=== PATIENT | female | born 1975 | race African-American/Black ===

== ENCOUNTER 2021-06-24 13:58 | Emergency (ER) | payer SELFPAY ==
--- OUTSIDE RECORDS SUMMARY | 2021-06-24 14:02 | XMS REPORT | Continuity of Care Document ---
:1975 Author Organization [facility] t Address [address] [place] [address] Care Team Providers Name Role Phone Abhay Attending Clinician Unavailable Physician, Primary or Family Admitting Clinician Unavailabl e Payers Payer Name Policy Type Policy Number Effective Date Expiration Date S ource Problems This patient has no known problems. Allergies, Adverse Reactions, Alerts Allergy Allergy Status Severity Reaction(s) Onset Inactive Treating Comm ents Source Name Type Date Date Clinician No Known DA Active U 2016-07 [facility]- Clear s 00:00: [place] [facility] No Known DA Active U 2016-07 [facility] All[facility]ie 2-22 Clear s 00:00: [address] Medications This patient has no known medications. Procedures This patient has no known procedures. Encounters Start End Encounter Admission Attending Care Care Encounter Source Date/Time Date/Time Type Type Clinicians Facility Department ID 2019-10-09 Inpatient JOMAR SADLER [id number] [facility] 08:25:00 [facility] 2019-10-09 2019-10-09 Outpatient ALYX Blank LA2 [id number] [facility] 23:59:00 23:59:00 Hector [facility] Results Test Description Test Time Test Comments Results Result Comments Source DNA PROBE CHLAMYDIA GC 2019-10-11 08:49:00 Test Item Value Reference Range Interpretation Comme nts DNA PROBE CHLAMYDIA (test code = Negative Negative DNACH) DNA PROBE N.GONORRHEA (GC) (test Negative Negative Performed At: [facility] [place] code = DNAGC) [id number] [place], [place] [id number] jesse Canseco Ph:[phone] DNA PROBE CHLAMYDIA [id number] 22:07:00 Test Item Value Reference Range Interpretation Comments DNA PROBE CHLAMYDIA Negative Negative (test code = DNACH) DNA PROBE N.GONORRHEA Negative Negative Perfor med At: (GC) (test code = [facility] Sa n DNAGC) [id number] [place], [place] [id number] jesse Canseco Ph:[phone] DNA NUCLEIC ACID (test code = DNANUC) - US PELVIC [id number] 09:46:00 Name: ADEN KILLIAN [facility] : 1975 Age/S: 44 / F [address] [place] Unit #: [id number] Loc: [place] [address] Phys: Hector Blank MD Acct: [id number] Dis Date: Status: REG ER PHONE #: [phone] Exam Date: 10/09/2019929 FAX #: Reason: pelvic pain EXAMS: CPT: [id number] US PELVIC COMPLETE [id number] LOCATION: T18 EXAM: - US PELVIC COMPLETE INDICATION: pelvic pain COMPARISON: None. TECHNIQUE: Real-time grayscale sonographic images of the complete pelvis are submitted for interpretation. FINDINGS: Uterus measures 16.4 x 6.1 x 9.3 cm. Endometrium is not clearly seen due to multiple intramural fibroids which are partially calcified and shadowing. 3 large fibroids present measuring 4.7 x 4.5 x 4 cm, 3.7 x 4.1 x 3.8 cm, and 3.3 x 2.8 x 2.7 cm. Right ovary is not seen. Left ovary measures 2.7 x 1.5 x 3 cm. Normal venous and arterial waveforms of the left ovary. No adnexal mass or free fluid. IMPRESSION: Enlarged fibroid uterus with fibroids measuring up to 4.7 cm. at 0946 Reported and signed by: Abrahan Hannah M.D. CC: Hector Blank MD Technologist: Radha Perez Trnscb Date/Time: 10/09/2019 (945) [id number] PAGE 1 Signed Report Name: ADEN KILLIAN : 1975 Age/S: 44 / F [address] Unit #: [id number] Loc: [place] [address] Phys: Hector Blank MD Acct: [id number] Dis Date: Status: REG ER PHONE #: [phone] Exam Date: 10/09/2019929 FAX #: Reason: pelvic pain EXAMS: CPT: [id number] PELVIC COMPLETE [address]3233 <Continued> Orig Print D/T: S: 10/09/2019 (0949) Probe: PAGE 2 Signed ReportUA RFLX MICR CULT IF [id number] 09:23:00 Test Item Value Reference Range Interpretation Comments UA COLOR (test code = YELLOW discript YEL/STRAW COLU) UA APPEARANCE (test code HAZY discript CLEAR A = APPU) UA GLUCOSE DIPSTICK (test NEGATIVE mg/dL NEG code = DGLUU) UA BILIRUBIN DIPSTICK NEGATIVE mg/dL NEG (test code = BILU) UA KETONE DIPSTICK (test NEGATIVE mg/dL NEG code = KETU) UA SPECIFIC GRAVITY (test 1.025 SG 1.005-1.030 code = SGU) UA BLOOD DIPSTICK (test 1+ mg/DL NEG A code = MODE) UA PH DIPSTICK (test code 5.5 pH UNITS 5.0-7.0 = ISATU) UA PROTEIN DIPSTICK (test NEGATIVE mg/dL NEG code = PROU) UA UROBILINIOGEN DIPSTICK 0.2 mg/dL <2.0 (test code = URO) UA NITRITE DIPSTICK (test NEGATIVE SCREEN NEG code = ALYSIA) UA LEUKOCYTE ESTERASE 2+ Leuk/mcL NEGATIVE A DIPSTICK (test code = LEUU) UA WBC (test code = WBCU) >50 #WBC/HPF 0-3 A UA RBC (test code = RBCU) 1-3 #RBC/HPF 0-3 UA BACTERIA (test code = 1+ /HPF NONE-TRACE A BACU) UA SQUAMOUS CELLS (test 1+ /HPF NONE A code = SQU) UA CULTURE NEEDED? (test YES,WBC>10 & EPI<25 Culture CHK code = UACULT) Criteria SOURCE OF URINE: CLEAN CATCHIndication for culture: Dysuria/FrequencyBASIC METABOLIC [id number] 09:18:00 Test Item Value Reference Range Interpretation Comments SODIUM (test code = NA) 137 mmol/L 134-147 N POTASSIUM (test code = 3.7 mmol/L 3.4-5.0 N K) CHLORIDE (test code = 104 mmol/L 100-108 N CL) CARBON DIOXIDE (test 29 mmol/L 21-32 N code = CO2) ANION GAP (test code = 4.0 GAP calc 4.0-15.0 N GAP) GLUCOSE (test code = 92 MG/DL 70-110 N GLU) BLOOD UREA NITROGEN 10 MG/DL 7-18 N (test code = BUN) GLOMERULAR FILTRATION >=60 max estimate >60 RATE (test code = GFR) estGFR CREATININE (test code = 1.0 MG/DL 0.6-1.0 N CREAT) CALCIUM (test code = CA) 8.6 MG/DL 8.5-10.1 N HCG [id number] 09:18:00 Test Item Value Reference Range Interpretation Comments HCG SERUM (test < 1 mi-IU/ML 0-6 N 0 - 6 NOT code = HCG) > 6 SUGGESTIVE OF EARLY RISES TWO FOLD EVERY 2 DAYS; SUGGES T RECONFIRMING AF TER 2 DAYS. 150,000-200,[address] TR[address] 10,00 0 - 50,000 2ND & 3RD TRIMESTER UA RFLX MICR CULT IF [id number] 09:07:00 Test Item Value Reference Range Interpretation Comments UA COLOR (test code = COLU) YELLOW discript YEL/STRAW UA APPEARANCE (test code = HAZY discript CLEAR A APPU) UA GLUCOSE DIPSTICK (test NEGATIVE mg/dL NEG code = DGLUU) UA BILIRUBIN DIPSTICK (test NEGATIVE mg/dL NEG code = BILU) UA KETONE DIPSTICK (test code NEGATIVE mg/dL NEG = KETU) UA SPECIFIC GRAVITY (test 1.025 SG 1.005-1.030 code = SGU) UA BLOOD DIPSTICK (test code 1+ mg/DL NEG A = MODE) UA PH DIPSTICK (test code = 5.5 pH UNITS 5.0-7.0 ISATU) UA PROTEIN DIPSTICK (test NEGATIVE mg/dL NEG code = PROU) UA UROBILINIOGEN DIPSTICK 0.2 mg/dL <2.0 (test code = URO) UA NITRITE DIPSTICK (test NEGATIVE SCREEN NEG code = ALYSIA) UA LEUKOCYTE ESTERASE 2+ Leuk/mcL NEGATIVE A DIPSTICK (test code = LEUU) UA CULTURE NEEDED? (test code Criteria Culture CHK = UACULT) SOURCE OF URINE: CLEAN CATCHIndication for culture: Dysuria/FrequencyCBC W/AUTO [id number] 09:01:00 Test Item Value Reference Range Interpretation Comments WHITE BLOOD CELL (test code = 13.0 K/mm3 3.5-11.0 H WBC) RED BLOOD CELL (test code = RBC) 4.66 M/mm3 4.70-6.10 L HEMOGLOBIN (test code = HGB) 11.0 G/DL 10.4-14.9 N HEMATOCRIT (test code = HCT) 34.7 % 31.5-44.1 N MEAN CELL VOLUME (test code = 74.5 Fl 84.5-98.6 L MCV) MEAN CELL HGB (test code = MCH) 23.6 pg 27.0-34.2 L MEAN CELL HGB CONCETRATION (test 31.7 G/DL 31.5-34.0 N code = MCHC) RED CELL DISTRIBUTION WIDTH (test 17.8 SD 11.5-14.5 H code = RDW) PLATELET COUNT (test code = PLT) 344.0 K/mm3 150-450 N MEAN PLATELET VOLUME (test code = 9.60 fL 7.0-10.5 N MPV) NEUTROPHIL % (test code = NT%) 72.9 % 40-76 N LYMPHOCYTE % (test code = LY%) 16.5 % 20.5-51.1 L MONOCYTE % (test code = MO%) 8.5 % 1.7-9.3 N EOSINOPHIL % (test code = EO%) 1.9 % 0.0-6.0 N BASOPHIL % (test code = BA%) 0.2 % 0.0-2.0 N NEUTROPHIL # (test code = NT#) 9.47 K/mm3 1.8-7.6 H LYMPHOCYTE # (test code = LY#) 2.1 K/mm3 0.6-3.2 N MONOCYTE # (test code = MO#) 1.1 K/mm3 0.3-1.1 N EOSINOPHIL # (test code = EO#) 0.3 K/mm3 0.0-0.4 N BASOPHIL # (test code = BA#) 0.0 K/mm3 0.0-0.1 N MANUAL DIFF REQUIRED (test code = NO DIFF/SCN CRITERIA MDIFF)
--- NOTE | 2021-06-24 17:19 | ER ---
Nurse's Notes [facility] Name: Aleksandra Lai Age: 45 yrs Sex: Female : 1975 Arrival Date: 06/24/2021 Time: 13:59 Bed Waiting Private MD: Diagnosis: Presentation: 06/24 14:25 Chief complaint: Patient states: lower abd and back pain starting yesterday. pt has hx [facility] [place] but states no burning with urination nor frequency. Coronavirus screen: Vaccine status: Patient reports being unvaccinated. Ebola Screen: No symptoms or risks identified at this time. Initial Sepsis Screen: Does the patient meet any 2 criteria? No. Patient's initial sepsis screen is negative. Does the patient have a suspected source of infection? No. Patient's initial sepsis screen is negative. Risk Assessment: Do you want to hurt yourself or someone else? Patient reports no desire to harm self or others. Onset of symptoms was June 23, 2021. 14:25 Method Of Arrival: Ambulatory [facility] 14:25 Acuity: MAGO 3 [facility] Triage Assessment: 14:28 General: Appears in no apparent distress. Behavior is calm, cooperative. Pain: [facility] Complains of pain in suprapubic area and left lower quadrant Pain currently is 7 out of 10 on a pain scale. Quality of pain is described as crampy, sharp, Pain began 1 day ago. Is continuous. Historical: - Allergies: 14:28 No Known Allergies; [facility] - Home Meds: 14:28 Tylenol #3 Oral [Active]; [facility] - Immunization history:: Adult Immunizations up to date. - Social history:: Smoking status: Patient denies any tobacco usage or history of. Assessment: 16:52 Reassessment: Called from from ER lobby. No answer. 17:17 Reassessment: called to exam room. No answer. Vital Signs: 14:25 BP 113 / 83; Pulse 96; Resp 17; Temp 97.6(O); Pulse Ox 100% ; Weight 83.91 kg; Height 4 [facility] ft. 9 in. (144.78 cm); Pain 8/10; 14:25 Body Mass Index 40.03 (83.91 kg, 144.78 cm) [facility] ED Course: 13:59 Patient arrived in ED. am2 14:27 Triage completed. 6 14:29 Arm band placed on right wrist. 6 16:41 Rosa Arteaga, RN is Primary Nurse. eo2 Administered Medications: No medications were administered Outcome: 17:18 Patient left the ED. Signatures: Mackenzie Walter RN RN Jennifer Christy am2 Erlinda Cook RN RN [facility] Rosa Arteaga, LISY RN eo2
[2021-06-24 17:48] VITALS: BP 113/83; TEMP 97.6; O2SAT 100
== END 2021-06-24 17:18 | disposition left against medical advice (07) ==
LOC: ER 13:58
DX: Z53.21 Procedure and treatment not carried out due to patient leaving prior to being seen by health care provider (principal)
CPT/HCPCS: 99281

== ENCOUNTER 2021-08-26 13:30 | Emergency (ER) | payer SELFPAY ==
--- OUTSIDE RECORDS SUMMARY | 2021-08-26 13:35 | XMS REPORT | Continuity of Care Document ---
:[address] [facility] t Address [address] [place] [address] Care Team Providers Name Role Phone Nancito Attending Clinician Unavailable Physician, Primary or Family Admitting Clinician Unavailabl e Payers Payer Name Policy Type Policy Number Effective Date Expiration Date S ource Problems This patient has no known problems. Allergies, Adverse Reactions, Alerts Allergy Allergy Status Severity Reaction(s) Onset Inactive Treating Comm ents Source Name Type Date Date Clinician No Known DA Active U 2016-07 [facility] All[facility]ie 2-22 Clear s 00:00: [place] 00 [facility] No Known DA Active U 2016-07 [facility] Allergie 2-22 Clear s 00:00: [address] Medications This patient has no known medications. Procedures This patient has no known procedures. Encounters Start End Encounter Admission Attending Care Care Encounter Source Date/Time Date/Time Type Type Clinicians Facility Department ID 2019-10-09 Inpatient JOMAR SADLER [id number] [facility] 08:25:00 [facility] [place] 2019-10-09 2019-10-09 Outpatient ALYX Blank LA2 [id number] [facility] 23:59:00 23:59:00 Hector [facility] Results Test Description Test Time Test Comments Results Result Comments Source DNA PROBE CHLAMYDIA GC 2019-10-11 08:49:00 Test Item Value Reference Range Interpretation Comme nts DNA PROBE CHLAMYDIA (test code = Negative Negative DNACH) DNA PROBE N.GONORRHEA (GC) (test Negative Negative Performed At: [facility] code = DNAGC) [id number] [place], [place] [id number] jesse Canseco Ph:[phone] DNA PROBE CHLAMYDIA [id number] 22:07:00 Test Item Value Reference Range Interpretation Comments DNA PROBE CHLAMYDIA Negative Negative (test code = DNACH) DNA PROBE N.GONORRHEA Negative Negative Perfor med At: (GC) (test code = [facility] Sa n DNAGC) [id number] [place], [place] [id number] jesse Canseco Ph:[phone] DNA NUCLEIC ACID (test code = DNANUC) - US PELVIC [id number] 09:46:00 Name: ADEN KILLIAN [facility] : 1975 Age/S: 44 / F [address] [place] Unit #: [id number] Loc: [place] [address] Phys: Hector Blank MD Acct: [id number] Dis Date: Status: REG ER PHONE #: [phone] Exam Date: 10/09/2019929 FAX #: Reason: pelvic pain EXAMS: CPT: [id number] US PELVIC COMPLETE [id number] LOCATION: T18 EXAM: - US PELVIC COMPLETE [...] MD Technologist: Radha Perez Trnscb Date/Time: 10/09/2019 (0946) [id number] PAGE 1 Signed Report Name: ADEN KILLIAN : 1975 Age/S: 44 / F [address] [place] Unit #: [id number] Loc: [place] [address] Phys: Hector Blank MD Acct: [id number] Dis Date: Status: REG ER PHONE #: [phone] Exam Date: 10/09/2019929 FAX #: Reason: pelvic pain EXAMS: CPT: [id number] PELVIC COMPLETE [id number] <Continued> Orig Print D/T: S: 10/09/2019 (0949) Probe: PAGE 2 Signed ReportUA RFLX MICR CULT IF [id number] 09:23:00 Test Item Value Reference Range Interpretation [...] URINE: CLEAN CATCHIndication for culture: Dysuria/FrequencyBASIC METABOLIC [id number] 09:18:00 Test Item Value Reference Range Interpretation [...] = CA) 8.6 MG/DL 8.5-10.1 N HCG [id number] 09:18:00 Test Item Value Reference Range Interpretation Comments HCG SERUM (test < 1 mi-IU/ML 0-6 N 0 - 6 NOT code = HCG) > 6 SUGGESTIVE OF EARLY RISES TWO FOLD EVERY 2 DAYS; SUGGES T RECONFIRMING AF TER 2 DAYS. 150,000-200,[address] TRIME[address] 10,00 0 - 50,000 2ND & 3RD TRIMESTER UA RFLX MICR CULT IF [id number] 09:07:00 Test Item Value Reference Range Interpretation [...] URINE: CLEAN CATCHIndication for culture: Dysuria/FrequencyCBC W/AUTO [id number] 09:01:00 Test Item Value Reference Range Interpretation [...]
[2021-08-26 14:16] LABS: Urine Blood Negative (Negative); Urine Glucose Negative (Negative); Urine Protein Negative (Negative); Urine Specific Gravity >=1.030 (1.005-1.030)
[2021-08-26] MEDS ORDERED: NA CHLORIDE 0.9% 1,000 ML ONE (14:19)
[2021-08-26] MEDS ORDERED: DICYCLOMINE HCL 10 MG CAP ONE (14:19)
[2021-08-26 14:37] LABS: Absolute Lymphocytes (CBC) 2.3 K/uL (0.7-4.9); Hematocrit 29.1 % (36.0-45.0); Lymphocytes % 23.5 % (15.3-44.8); MPV 7.7 fL (7.6-11.3)
[2021-08-26 14:44] LABS: Urine Bacteria >50 /HPF (<20); Urine RBC <5 /HPF (NONE SEEN)
[2021-08-26 14:44] LABS: Urine Specific Gravity/Preg >1.030 (1.005-1.030)
[2021-08-26 14:51] LABS: Albumin 3.4 g/dL (3.4-5.0); Bilirubin Direct 0.3 mg/dL (0-0.2); Bilirubin Total 1.2 mg/dL (0.2-1.0); Potassium 3.4 mmol/L (3.5-5.1); Protein, Total 7.8 g/dL (6.4-8.2)
[2021-08-26 15:24] LABS: Anisocytosis 1+; Blood Morphology Comment NOTED (NOT SEEN); Hypochromasia 1+; Platelet Estimate INCR; White Blood Cell Scan OK (OK)
--- NOTE | 2021-08-26 15:43 | RAD REPORT ---
EXAM DESCRIPTION: CT - Abdomen Pelvis W Contrast - 08/26/2021 3:07 pm CLINICAL HISTORY: Abdominal pain COMPARISON: 2017 TECHNIQUE: Computed axial tomography of the abdomen pelvis was obtained. 100 cc Isovue-300 was admin istered intravenously. Oral contrast was not requested which limits evaluation of bowel. All CT scans are performed using dose optimization technique as appropriate and may include automated exposure control or mA/KV adjustment according to patient size. FINDINGS: The liver, spleen, pancreas, adrenal and kidneys appear unremarkable. There is no evidence of diverticulitis. Normal appendix Cholecystectomy 14.5 x 2 x 1.3 centimeter (cc by AP by trans) uterine mass has increased in size since prior exam. It contains low density areas consistent with necrosis and calcification. The mass displaces bowel with in the upper pelvis and lower abdomen. IMPRESSION: 14.5 centimeter pelvic mass most likely a multi fibroid uterus. Leiomyosarcoma is anothe r consideration
--- NOTE | 2021-08-26 17:29 | RAD REPORT ---
EXAM DESCRIPTION: US - Transvaginal Study Probe - 08/26/2021 5:20 pm CLINICAL HISTORY: Pelvic pain COMPARISON: CT abdomen and pelvis August 26, 2021 FINDINGS: There is little normal appearing uterus. Uterus measures approximately 14 x 10 x 13 centim eters. The uterus is filled with masses which are heterogeneous and contain necrosis. Masses measure up to 5 centimeters. Endometrial stripe is distorted by the masses. The right and left adnexa are unremarkable Neither ovary visualized No significant free fluid is seen. IMPRESSION: Uterus is enlarged and filled with masses most likely fibroids. Leiomyosarcoma is anothe r consideration
[2021-08-26] MEDS ORDERED: CEFTRIAXONE 1000 MG/VIAL ONE (18:00)
--- NOTE | 2021-08-26 18:00 | EDPHYS ---
Physician Documentation [facility] Name: Aleksandra Lai Age: 46 yrs Sex: Female : 1975 Arrival Date: 08/26/2021 Time: 13:34 Bed 20 Private MD: ED Physician Faraz Cosby HPI: 08/26 13:55 This 46 yrs old Black Female presents to ER via Ambulatory with complaints of Abdominal cp Pain. 13:55 The patient presents with abdominal pain in the lower abdomen. Onset: The cp symptoms/episode began/occurred few days ago. The symptoms do not radiate. 13:55 Associated signs and symptoms: Pertinent positives: diarrhea, Pertinent negatives: cp anorexia, blood in stools, constipation, fever, vomiting. 13:55 The symptoms are described as waxing/waning. 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 Flu vaccine is not up to date. - Social history:: Smoking status: Patient denies any tobacco usage or history of. ROS: 14:00 Constitutional: Negative for body aches, chills, fever, poor PO intake. cp 14:00 Cardiovascular: Negative for chest pain. cp 14:00 Abdomen/GI: Positive for abdominal pain, diarrhea, Negative for vomiting, constipation, black/tarry stool, rectal bleeding. 14:00 Respiratory: Negative for cough, shortness of breath, wheezing. cp 14:00 Back: Negative for radiated pain. 14:00 : Positive for urinary frequency, Negative for vaginal bleeding. 14:00 Neuro: Negative for altered mental status, dizziness, headache, weakness. 14:00 All other systems are negative. Exam: 14:05 Constitutional: The patient appears in no acute distress, alert, awake, comfortable, cp non-diaphoretic, non-toxic, well developed, well nourished. 14:05 Head/Face: Normocephalic, atraumatic. cp 14:05 Eyes: Periorbital structures: appear normal, Conjunctiva: normal, no exudate, no injection, Sclera: no appreciated abnormality, Lids and lashes: appear normal, bilaterally. 14:05 ENT: External ear(s): are unremarkable, Nose: is normal, Mouth: Lips: moist, Oral mucosa: moist, Posterior pharynx: Airway: no evidence of obstruction, patent. 14:05 Chest/axilla: Inspection: normal. 14:05 Cardiovascular: Rate: normal. 14:05 Respiratory: the patient does not display signs of respiratory distress, Respirations: normal, no use of accessory muscles, no retractions, labored breathing, is not present. 14:05 Abdomen/GI: Inspection: obese Bowel sounds: active, all quadrants, Palpation: soft, in all quadrants, mild abdominal tenderness, in the suprapubic area, rebound tenderness, is not appreciated, involuntary guarding, is not appreciated. 14:05 Back: CVA tenderness, is absent. 14:05 Neuro: Orientation: to person, place \T\ time. Mentation: is normal. Vital Signs: 13:39 BP 112 / 81; Pulse 92; Resp 17; Temp 98.7(O); Pulse Ox 100% ; Height 4 ft. 9 in. ap3 (144.78 cm); MDM: 13:50 Patient medically screened. cp 14:00 Differential diagnosis: appendicitis, diverticulitis, gastritis, non-specific abd pain, cp Pyelonephritis, Ureterolithiasis, urinary tract infection. 17:59 Data reviewed: vital signs, nurses notes, lab test result(s), radiologic studies, CT cp scan. 17:59 Counseling: I had a detailed discussion with the patient and/or guardian regarding: the cp historical points, exam findings, and any diagnostic results supporting the discharge/admit diagnosis, lab results, radiology results, to return to the emergency department if symptoms worsen or persist or if there are any questions or concerns that arise at home. Response to treatment: the patient's symptoms have mildly improved after treatment, and as a result, I will discharge patient. Special discussion: Based on the patient's Hx, exam, and Dx evaluation, there is no indication for emergent surgery or inpatient Tx. It is understood by the patient/guardian that if the Sx's persist or worsen they need to return immediately for re-evaluation. 08/26 13:46 Order name: Urine Microscopic Only cp 08/26 13:46 Order name: Urine Microscopic Only; Complete Time: 15:37 EDMS 08/26 15:37 Interpretation: Normal except: UWBC 10-20; UBACT >50; SQEPI 5-10. cp 08/26 13:55 Order name: Basic Metabolic Panel; Complete Time: 15:37 cp 08/26 15:37 Interpretation: Normal except: K 3.4; GFR 64. cp 08/26 13:55 Order name: CBC with Diff; Complete Time: 15:37 cp 08/26 15:38 Interpretation: Normal except: HGB 8.9; HCT 29.1; MCV 66.0; MCH 20.2; MCHC 30.6; PLT cp 423; RDW 20.3. 08/26 13:55 Order name: Hepatic Function; Complete Time: 15:37 08/26 15:38 Interpretation: Normal except: BILIT 1.2; AST 8; BILID 0.3; GLOB 4.4; A/G 0.8. 08/26 13:55 Order name: Lipase; Complete Time: 15:37 08/26 13:55 Order name: CT Abd/Pelvis - IV Contrast Only; Complete Time: 17:35 cp 08/26 14:16 Order name: Urine Dipstick-Ancillary; Complete Time: 14:37 EDDC 08/26 14:37 Interpretation: Reviewed. 08/26 14:18 Order name: Urine --Ancillary (enter results); Complete Time: 15:37 08/26 14:44 Order name: Urine Culture EDDC 08/26 15:24 Order name: CBC Smear Scan; Complete Time: 15:37 EDDC 08/26 16:03 Order name: US Transvaginal Study (Probe); Complete Time: 17:35 cp 08/26 13:46 Order name: Urine Dipstick-Ancillary (obtain specimen); Complete Time: 14:21 cp 08/26 13:46 Order name: Urine Test (obtain specimen); Complete Time: 14:21 cp 08/26 13:55 Order name: IV Saline Lock; Complete Time: 14:21 08/26 13:55 Order name: Labs collected and sent; Complete Time: 14:21 cp Administered Medications: 14:21 Drug: Bentyl (dicyclomine) 20 mg Route: PO; jain 14:21 Drug: NS 0.9% 500 ml Route: IV; Rate: bolus; Site: left antecubital; 14:21 Drug: NS 0.9% 500 ml Route: IV; Rate: 125 ml/hr; Site: left antecubital; 18:01 Drug: Rocephin - (cefTRIAXone) 1 grams Route: IVPB; Infused Over: 30 mins; Site: left jain antecubital; Disposition Summary: 08/26/21 17:59 Discharge Ordered Location: Home cp Problem: an ongoing problem cp Symptoms: have improved cp Condition: Stable cp Diagnosis - UTI/ Urinary tract infection, site not specified cp - Other intra-abdominal and pelvic swelling, mass and lump - uterine fibroids cp - Anemia in other chronic diseases classified elsewhere cp Followup: cp - With: Ashley Macdonald MD - When: 1 week - Reason: Recheck today's complaints Discharge Instructions: - Discharge Summary Sheet cp - Anemia cp - Uterine Fibroids cp - Urinary Tract Infection, Adult cp Forms: - Medication Reconciliation Form cp - Thank You Letter cp - Antibiotic Education cp - Prescription Opioid Use cp - Work release form Prescriptions: - Ferrous Sulfate 325 mg (65 mg Iron) Oral Tablet - take 1 tablet by ORAL route every 12 hours; 60 tablet; Refills: 0, Product cp Selection Permitted - Ibuprofen 800 mg Oral Tablet - take 1 tablet by ORAL route every 8 hours As needed take with food; 30 tablet; cp Refills: 0, Product Selection Permitted - Bactrim DS 800-160 mg Oral Tablet - take 1 tablet by ORAL route every 12 hours for 7 days; 14 tablet; Refills: 0, cp Product Selection Permitted Signatures: Dispatcher [employer] EDOsmin Singh PA PA cp Prokisch, Amanda RN RN 3 Monique Fuentes RN RN
--- NOTE | 2021-08-26 18:00 | ER ---
Nurse's Notes [facility] Name: Aleksandra Lai Age: 46 yrs Sex: Female : 1975 Arrival Date: 08/26/2021 Time: 13:34 Bed 20 Private MD: Diagnosis: UTI/ Urinary tract infection, site not specified;Other intra-abdominal and pelvic swelling, mass and lump-uterine fibroids;Anemia in other chronic diseases classified elsewhere Presentation: 08/26 13:39 Chief complaint: Patient states: she has had lower abdominal pain for a few days, and ap3 states she can't take it any longer. patient reports having her gallbladder removed in the past. Coronavirus screen: At this time, the client does not indicate any symptoms associated with coronavirus-19. Ebola Screen: No symptoms or risks identified at this time. Initial Sepsis Screen: Does the patient meet any 2 criteria? No. Patient's initial sepsis screen is negative. Does the patient have a suspected source of infection? No. Patient's initial sepsis screen is negative. Risk Assessment: Do you want to hurt yourself or someone else? Patient reports no desire to harm self or others. Onset of symptoms was August 21, 2021. 13:39 Method Of Arrival: Ambulatory ap3 13:39 Acuity: MAGO 3 ap3 Triage Assessment: 13:43 General: Appears in no apparent distress. comfortable, Behavior is calm, cooperative, ap3 appropriate for age. Pain: Complains of pain in suprapubic area, right lower quadrant and left lower quadrant. Neuro: Level of Consciousness is awake, alert, obeys commands, Oriented to person, place, time, situation, Appropriate for age Gait is steady, Speech is normal. Cardiovascular: Patient's skin is warm and dry. Respiratory: Airway is patent Respiratory effort is even, unlabored, Respiratory pattern is regular, symmetrical. GI: Abdomen is round Reports loose stools. 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 Flu vaccine is not up to date. - Social history:: Smoking status: Patient denies any tobacco usage or history of. Screenin:44 Abuse screen: Denies threats or abuse. Nutritional screening: No deficits noted. ap3 Tuberculosis screening: No symptoms or risk factors identified. Fall Risk None identified. No fall in past 12 months (0 pts). Assessment: 13:52 General: patient provided with urine specimen container and education on proper urine ap3 collection. patient verbally understands education . 14:33 GI: Bowel sounds present X 4 quads. Abd is soft and non tender Abd is non tender jain Reports Pain is 7 out of 10 on a pain scale. Vital Signs: 13:39 BP 112 / 81; Pulse 92; Resp 17; Temp 98.7(O); Pulse Ox 100% ; Height 4 ft. 9 in. ap3 (144.78 cm); ED Course: 13:34 Patient arrived in ED. mr 13:42 Triage completed. ap3 13:44 Arm band placed on right wrist. ap3 13:45 Osmin Rondon PA is PHCP. cp 13:45 Faraz Cosby MD is Attending Physician. cp 13:53 Patient has correct armband on for positive identification. Bed in low position. Call ap3 light in reach. Side rails up X 1. patient has an with her. Infant is in the patients lap at this time. 14:21 Urine Microscopic Only Sent. jain 14:21 Urine Microscopic Only Sent. jain 14:34 No provider procedures requiring assistance completed. Inserted saline lock: 20 gauge jain in left antecubital area, using aseptic technique. 15:07 CT Abd/Pelvis - IV Contrast Only In Process Unspecified. EDMS 17:20 US Transvaginal Study (Probe) In Process Unspecified. EDMS 17:57 Ashley Macdonald MD is Referral Physician. cp 18:19 IV discontinued, intact, Pressure dressing applied. jain Administered Medications: 14:21 Drug: Bentyl (dicyclomine) 20 mg Route: PO; jain 14:21 Drug: NS 0.9% 500 ml Route: IV; Rate: bolus; Site: left antecubital; jain 14:21 Drug: NS 0.9% 500 ml Route: IV; Rate: 125 ml/hr; Site: left antecubital; jain 18:01 Drug: Rocephin - (cefTRIAXone) 1 grams Route: IVPB; Infused Over: 30 mins; Site: left jain antecubital; Outcome: 17:59 Discharge ordered by MD. lopez 18:19 Discharged to home jain 18:19 Condition: good 18:19 Discharge instructions given to patient, Prescriptions given X 3. 18:19 Patient left the ED. jain Signatures: Dispatcher [employer] WANDANY MarceloEllen mr Osmin Rondon PA PA cp Prokisch, Amanda RN RN ap3 Karen-StagerMonique RN RN
[2021-08-26 18:32] VITALS: TEMP 98.9
[2021-08-26 18:37] VITALS: BP 122/77; O2SAT 95
== END 2021-08-26 18:19 | disposition home or self-care (01) ==
LOC: ER 13:30
DX: N39.0 Urinary tract infection, site not specified (principal); D64.9 Anemia, unspecified; D25.9 Leiomyoma of uterus, unspecified
CPT/HCPCS: 36415; 74177; 76830; 80048; 80076; 81003; 81015; 81025; 83690; 85025; 87077; 87086; 87088; 87186; 96374; 99284; J7030; Q9967